=== PATIENT | male | born 1980 | race Caucasian/White ===

== ENCOUNTER 2018-04-17 11:01 | Emergency (ER) | payer OTHER ==
[~2018-04-17] VITALS: Ht 177.8 cm; Wt 90.7 kg
[~2018-04-17 11:01] MED LIST: ABILIFY PO
== END 2018-04-17 13:22 | disposition home or self-care (01) ==
LOC: ED 11:01
DX: F29 Unspecified psychosis not due to a substance or known physiological condition (principal); Z79.899 Other long term (current) drug therapy